=== PATIENT | female | born 1965 | race Caucasian/White ===

== ENCOUNTER 2023-03-02 13:35 | Emergency (ER) | payer MEDICARE ==
--- NOTE | 2023-03-02 13:49 | ED Physician Documentation ---
PD HPI CHEST PAIN - Stated complaint Stated Complaint: AFIB - Chief complaint Chief Complaint: Cardiac - History obtained from History obtained from: Patient - History of Present Illness Timing - onset: Unknown (Patient was seen in the office primary care as a new patient appointment. Found incidentally to be in a moderately rapid atrial fibrillation of unknown duration. She cannot feel it beating fast or irregular. Has noticed some exertional dyspnea for a month or so. No chest pains. No h/o afib.) Timing - details: Other (unknown onset) Quality: No: Pressure, Tightness, Aching Associated symptoms: Shortness of air (with activity for a month or more.). No: Diaphoresis, Nausea, Feeling faint / dizzy Similar symptoms before: Has not had sx before Recently seen: Clinic (today) Review of Systems Cardiac: denies: Chest pain / pressure, Palpitations Respiratory: denies: Dyspnea, Cough GI: denies: Vomiting, Bloody / black stool PD PAST MEDICAL HISTORY - Past Medical History Cardiovascular: None Respiratory: None Neuro: Other (meningioma with prior surgery but not complete resection. ) Endocrine/Autoimmune: None Musculoskeletal: Fibromyalgia, Chronic back pain - Present Medications Home Medications: Ambulatory Orders Medication Instructions Recorded Confirmed Apixaban [Eliquis] 1 tab PO BID #60 tablet 03/02/23 Duloxetine HCl [Cymbalta] 60 mg PO DAILY 03/02/23 03/02/23 Galcanezumab-Gnlm [Emgality 120 mg SQ ONCE 03/02/23 03/02/23 Syringe] Metoprolol Succinate [Toprol Xl] 50 mg PO DAILY #30 tablet 03/02/23 Nortriptyline [Pamelor] 25 mg PO DAILY 03/02/23 03/02/23 Pregabalin [Lyrica] 600 mg PO DAILY 03/02/23 03/02/23 Ubrogepant [Ubrelvy] 100 mg PO 1-2XD PRN 03/02/23 03/02/23 tiZANidine [Zanaflex] 4 mg PO Q8H PRN 03/02/23 03/02/23 - Allergies Allergies/Adverse Reactions: Allergies Allergy/AdvReac Type Severity Reaction Status Date / Time No Known Drug Allergies Allergy Verified 03/02/23 13:38 - Living Situation Living Arrangement: reports: At home - Social History Does the pt smoke?: No Does the pt drink ETOH?: No Does the pt have substance abuse?: No PD ED PE NORMAL - Vitals Vital signs reviewed: Yes - General General: Alert and oriented X 3, No acute distress, Well developed/nourished - Neck Neck: Supple, no meningeal sign, No adenopathy - Cardiac Cardiac: No murmur. No: RRR (irregular and rate about 120) - Respiratory Respiratory: Clear bilaterally - Abdomen Abdomen: Soft, Non tender - Derm Derm: Normal color, Warm and dry - Extremities Extremities: Normal ROM s pain, No edema, No calf tenderness / cord - Neuro Neuro: Alert and oriented X 3, No motor deficit, Normal speech Results - Vitals Vitals: Vital Signs - 24 hr 03/02/23 03/02/23 03/02/23 13:39 15:00 16:05 Temperature 36.6 C Heart Rate 94 95 112 H Respiratory 16 21 26 H Rate Blood Pressure 150/90 H 147/108 H 157/100 H O2 Saturation 97 96 96 Oxygen O2 Source Room air - EKG (time done) 13:53 EKG releavant findings:: EKG personally interpreted by author of this note. Relevant findings are: Rate: Rate (enter#) (127) Rhythm: Atrial fibrillation [place]: Normal QRS: Normal Ischemia: Normal ST segments. No: ST elevation c/w ischemia, ST depression - Labs Labs: Laboratory Tests 03/02/23 03/02/23 03/02/23 14:20 14:20 14:20 WBC 5.1 RBC 3.65 L Hgb 9.9 L Hct 31.1 L MCV 85.2 MCH 27.1 MCHC 31.8 L RDW 15.3 H Plt Count 285 MPV 9.8 Neut # (Auto) 3.3 Lymph # (Auto) 1.1 L [place] # (Auto) 0.6 Eos # (Auto) 0.1 Baso # (Auto) 0.1 Absolute Nucleated RBC 0.00 Nucleated RBC % 0.0 Sodium 141 Potassium 4.2 Chloride 107 Carbon Dioxide 29 Anion Gap 5.0 L BUN 7 Creatinine 0.4 L Estimated GFR (MDRD) 165 Glucose 92 Calcium 9.5 Magnesium 1.7 Total Bilirubin 0.4 AST 12 ALT 9 L Alkaline Phosphatase 113 B-Natriuretic Peptide Cancelled Total Protein 6.8 Albumin 4.1 Globulin 2.7 Albumin/Globulin Ratio 1.5 Lipase 5 L TSH 0.61 03/02/23 14:20 WBC RBC Hgb Hct MCV MCH MCHC RDW Plt Count MPV Neut # (Auto) Lymph # (Auto) [place] # (Auto) Eos # (Auto) Baso # (Auto) Absolute Nucleated RBC Nucleated RBC % Sodium Potassium Chloride Carbon Dioxide Anion Gap BUN Creatinine Estimated GFR (MDRD) Glucose Calcium Magnesium Total Bilirubin AST ALT Alkaline Phosphatase B-Natriuretic Peptide 353 H Total Protein Albumin Globulin Albumin/Globulin Ratio Lipase TSH - Rads (name of study) chest xray Relevant Findings:: Prelim report reviewed (no cardiopulmonary abnormality), EMP independent interpretation of test PD Medical Decision Making - ED course Complexity details: reviewed results, considered differential (newly discovered atrial fib of unknown duration. Can check labs. Meds to slow heart rate for rate control. Start ASA and/or DOAC. Her PCP asked to start DOAC and beta jaylin. ), d/w patient ED course: discovered atrial fib on new pt apppt in office. Rate somewhat fast at 120-130. Pt without symptoms. Can get lytes/TSH, CBC, BNP to evaluate. denies chest pain norlightheaded. Some GARCIA for month or more. Chest xray and BNP to eval for failure. Otherwise goalof rate control and anticoag. Her PMD said to me that outpt ECHO and stress testing can be done through her. Departure - Departure Disposition: 01 Home, Self Care Clinical Impression: Atrial fibrillation Condition: Good Instructions: Atrial Fibrillation Dc Prescriptions: Apixaban [Eliquis] 1 tab PO BID #60 tablet Metoprolol Succinate [Toprol Xl] 50 mg PO DAILY #30 tablet Comments: I sent your prescriptions electronically to the [facility] in [place]. Dr. Ivory said she was going to order an echocardiogram which is appropriate. She may also want to refer you to cardiology at some point. Return for new or worsening symptoms, especially chest pain or trouble breathing. Forms: PCP List Discharge Date/Time: 03/02/23 16:05
[2023-03-02] MEDS ORDERED: METOPROLOL 5 MG/5 ML VIAL IVP STA (14:19)
[2023-03-02] MEDS ORDERED: APIXABAN 5 MG TABLET PO STA (14:19)
[2023-03-02 14:26] LABS: BASOPHILS # (AUTO) 0.1 10^3/uL (0.0-0.1); EOSINOPHILS # (AUTO) 0.1 10^3/uL (0.0-0.7); EOSINOPHILS % (AUTO) 2.1 %; HCT - HEMATOCRIT 31.1 % (37.0-47.0); HGB - HEMOGLOBIN 9.9 g/dL (12.0-16.0); LYMPHOCYTES # (AUTO) 1.1 10^3/uL (1.5-3.5); LYMPHOCYTES % (AUTO) 20.9 %; MEAN CORPUSCULAR HEMOGLOBIN 27.1 pg (27.0-31.0); MEAN CORPUSCULAR HGB CONC 31.8 g/dL (32.0-36.0); MEAN CORPUSCULAR VOLUME 85.2 fL (81.0-99.0); MEAN PLATELET VOLUME 9.8 fL (7.9-10.8); MONOCYTES # (AUTO) 0.6 10^3/uL (0.0-1.0); MONOCYTES % (AUTO) 10.9 %; NEUTROPHILS # (AUTO) 3.3 10^3/uL (1.5-6.6); NEUTROPHILS % (AUTO) 64.9 %; PLT - PLATELET COUNT 285 10^3/uL (130-450); RED BLOOD COUNT 3.65 10^6/uL (4.20-5.40); RED CELL DISTRIBUTION WIDTH 15.3 % (12.0-15.0); WHITE BLOOD COUNT 5.1 x10^3/uL (4.8-10.8)
--- NOTE | 2023-03-02 14:26 | XRAY Report ---
PROCEDURE: Chest 1 View X-Ray INDICATIONS: Chest pain TECHNIQUE: One view of the chest was acquired. COMPARISON: None. FINDINGS: Surgical changes and devices: Thoracic spinal stimulator leads. Right IJ central venous catheter tip projects over the mid SVC. Lungs and pleura: No pleural effusions or pneumothorax. Lungs are clear. Mediastinum: Mediastinal contours appear normal. Heart size is normal. Bones and chest wall: No suspicious bony lesions. Overlying soft tissues appear unremarkable. IMPRESSION: No acute cardiopulmonary process. Reviewed by: Wayne Woodward on 03/02/2023 2:25 PM PDT Approved by: Wayne Woodward on 03/02/2023 2:25 PM PDT Station ID: [id number]
[2023-03-02 15:00] LABS: ALBUMIN 4.1 g/dL (3.2-5.5); ALBUMIN/GLOBULIN RATIO 1.5 (1.0-2.2); BILIRUBIN,TOTAL 0.4 mg/dL (0.2-1.0); CALCIUM 9.5 mg/dL (8.5-10.3); CREATININE 0.4 mg/dL (0.6-1.3); MAGNESIUM 1.7 mg/dL (1.7-2.3); POTASSIUM 4.2 mmol/L (3.5-4.5); TOTAL PROTEIN 6.8 g/dL (6.4-8.9)
[2023-03-02 15:03] VITALS: O2SAT 96
--- NOTE | 2023-03-02 15:45 | ED Physician Documentation ---
ED Addendum - Addendum Addendum: 03/02/23 15:[address] Basilio at 3 PM shift change. Briefly this is a 57-year-old woman who is sent from the clinic after she was found to be in A-fib on a routine first patient appointment. It is unclear how long she has been in A- fib. She really does not have any symptoms to suggest CHF or ischemic heart disease. At the time of signout the request was to follow-up on labs and reevaluate the patient who had received IV Lopressor and an oral dose of Eliquis here. She is feeling fine. Her heart rates about 105. We discussed the pros and cons of anticoagulation and she would like to go ahead with it. She does have a [id number] score of 1 for female gender. Lab work is notable for normocytic anemia. She states anemia is chronic for her. CMP and TSH are normal. I sent her prescriptions electronically to [facility] in [place]. Prescriptions: 1. Metoprolol XL 50 mg p.o. daily #30 2. 5 mg p.o. twice daily #60 Disposition: Discharged home Condition: Stable Diagnosis: 1. Atrial fibrillation
[2023-03-02 16:14] VITALS: BP 157/100
== END 2023-03-02 16:05 | disposition home or self-care (01) ==
LOC: ED 13:35
DX: I48.91 Unspecified atrial fibrillation (principal)
CPT/HCPCS: 36415; 71045; 80053; 83690; 83735; 83880; 84443; 85025; 93005; 96374; 99284; A9270; 84484

== ENCOUNTER 2023-03-10 11:51 | Outpatient (CLI) | payer MEDICARE ==
[2023-03-10 12:39] LABS: FERRITIN 5.2 ng/mL (11.0-306.8)
== END 2023-03-10 11:52 | disposition home or self-care (01) ==
LOC: LAB 11:51
PROVIDERS: ATTEND Internal Medicine
DX: D64.9 Anemia, unspecified (principal)
CPT/HCPCS: 36415; 82728; 83540; 84466

== ENCOUNTER 2023-03-17 19:19 | Emergency (ER) | payer MEDICARE ==
--- NOTE | 2023-03-17 19:52 | ED Physician Documentation ---
History of Present Illness - Stated complaint Stated Complaint: SOA/FRAZIER/GI/HIGH BP - Chief complaint Chief Complaint: General - History obtained from History obtained from: Patient, Family - History of Present Illness Pain level max: 0 Pain level now: 0 - Additonal information Additional information: 57-year-old female presents to the emergency department stating that she was recently diagnosed with atrial fibrillation started on Eliquis about 2 weeks ago. Also started on metoprolol. She was recently started on iron as well for chronic anemia. She states she has had dark stools for the past 3 to 4 days. She states over the past few days she has noticed that she has become more short of breath and feels like her ability to walk is less. Has not noted any significant swelling in her legs. No chest pain. No fevers. No chills. Better with rest, worse with walking. Review of Systems Constitutional: denies: Fever, Chills Respiratory: denies: Cough GI: denies: Nausea, Vomiting, Diarrhea Skin: denies: Rash Musculoskeletal: denies: Neck pain, Back pain Neurologic: denies: Headache PD PAST MEDICAL HISTORY - Past Medical History Cardiovascular: None Respiratory: None Neuro: Other (meningioma with prior surgery but not complete resection. ) Endocrine/Autoimmune: None Musculoskeletal: Fibromyalgia, Chronic back pain - Past Surgical History Past Surgical History: Yes Ortho: Spine surgery - Present Medications Home Medications: Ambulatory Orders Medication Instructions Recorded Confirmed Apixaban [Eliquis] 1 tab PO BID #60 tablet 03/02/23 Duloxetine HCl [Cymbalta] 60 mg PO DAILY 03/02/23 03/02/23 Galcanezumab-Gnlm [Emgality 120 mg SQ ONCE 03/02/23 03/02/23 Syringe] Metoprolol Succinate [Toprol Xl] 50 mg PO DAILY #30 tablet 03/02/23 Nortriptyline [Pamelor] 25 mg PO DAILY 03/02/23 03/02/23 Pregabalin [Lyrica] 600 mg PO DAILY 03/02/23 03/02/23 Ubrogepant [Ubrelvy] 100 mg PO 1-2XD PRN 03/02/23 03/02/23 tiZANidine [Zanaflex] 4 mg PO Q8H PRN 03/02/23 03/02/23 Furosemide [Lasix] 20 mg PO DAILY #7 tablet 03/17/23 - Allergies Allergies/Adverse Reactions: Allergies Allergy/AdvReac Type Severity Reaction Status Date / Time No Known Drug Allergies Allergy Verified 03/17/23 19:28 - Social History Does the pt smoke?: No Smoking Status: Never smoker Does the pt drink ETOH?: No Does the pt have substance abuse?: No PD ED PE NORMAL - Vitals Vital signs reviewed: Yes - General General: Alert and oriented X 3, No acute distress - HEENT HEENT: PERRL, Moist mucous membranes - Neck Neck: Supple, no meningeal sign - Cardiac Cardiac: Other (Irregularly irregular) - Respiratory Respiratory: No respiratory distress, Clear bilaterally - Abdomen Abdomen: Soft, Non tender, Non distended - Derm Derm: Warm and dry - Extremities Extremities: No edema, No calf tenderness / cord - Neuro Neuro: Alert and oriented X 3 - Psych Psych: Normal mood, Normal affect Results - Vitals Vitals: Vital Signs - 24 hr 03/17/23 03/17/23 03/17/23 19:24 19:55 20:40 Temperature 36.8 C Heart Rate 124 H 101 H 92 Respiratory 18 23 27 H Rate Blood Pressure 150/90 H 138/97 H 135/91 H O2 Saturation 96 97 94 Oxygen O2 Source Room air - EKG (time done) 1933 EKG releavant findings:: EKG personally interpreted by author of this note. Relevant findings are: Rate: Rate (enter#) (116) Rhythm: Atrial fibrillation (RVR) [place]: Normal QRS: Normal Ischemia: Non specific changes - Labs Labs: Laboratory Tests 03/17/23 03/17/23 03/17/23 19:47 19:47 19:47 WBC 5.6 RBC 3.62 L Hgb 9.5 L Hct 30.9 L MCV 85.4 MCH 26.2 L MCHC 30.7 L RDW 15.6 H Plt Count 294 MPV 10.6 Neut # (Auto) 3.4 Lymph # (Auto) 1.4 L [place] # (Auto) 0.6 Eos # (Auto) 0.1 Baso # (Auto) 0.1 Absolute Nucleated RBC 0.00 Nucleated RBC % 0.0 Sodium 137 Potassium 3.9 Chloride 106 Carbon Dioxide 25 Anion Gap 6.0 BUN 15 Creatinine 0.6 Estimated GFR (MDRD) 103 Glucose 88 Calcium 9.1 Total Bilirubin 0.2 AST 28 ALT 17 Alkaline Phosphatase 107 B-Natriuretic Peptide 571 H Total Protein 6.6 Albumin 4.1 Globulin 2.5 Albumin/Globulin Ratio 1.6 Lipase 12 Urine Color Urine Clarity Urine pH Ur Specific [place] Urine Protein Urine Glucose (UA) Urine Ketones Urine Occult Blood Urine Nitrite Urine Bilirubin Urine Urobilinogen Ur Leukocyte Esterase Ur Microscopic Review Urine Culture Comments 03/17/23 20:49 WBC RBC Hgb Hct MCV MCH MCHC RDW Plt Count MPV Neut # (Auto) Lymph # (Auto) [place] # (Auto) Eos # (Auto) Baso # (Auto) Absolute Nucleated RBC Nucleated RBC % Sodium Potassium Chloride Carbon Dioxide Anion Gap BUN Creatinine Estimated GFR (MDRD) Glucose Calcium Total Bilirubin AST ALT Alkaline Phosphatase B-Natriuretic Peptide Total Protein Albumin Globulin Albumin/Globulin Ratio Lipase Urine Color YELLOW Urine Clarity CLEAR Urine pH 6.0 Ur Specific [place] 1.010 Urine Protein NEGATIVE Urine Glucose (UA) NEGATIVE Urine Ketones NEGATIVE Urine Occult Blood NEGATIVE Urine Nitrite NEGATIVE Urine Bilirubin NEGATIVE Urine Urobilinogen 0.2 (NORMAL) Ur Leukocyte Esterase NEGATIVE Ur Microscopic Review NOT INDICATED Urine Culture Comments NOT INDICATED - Rads (name of study) cxr Relevant Findings:: Final report received, See rad report PD Medical Decision Making - ED course Complexity details: reviewed results, re-evaluated patient, considered differential, d/w patient ED course: 57-year-old female presents to the emergency department with shortness of breath after being recently diagnosed with atrial fibrillation. Her BNP is double what it was 2 weeks ago. Has mild pulmonary edema. No hypoxia. No respiratory distress. She has rate controlled in the emergency department. We will start her on Lasix. Her hemoglobin is stable from prior. 9.5 versus 9.9, 2 weeks ago. Ambulating without difficulty here. No need for supplemental oxygen. She has an echocardiogram scheduled for mid March. She will follow-up with her PCP this week. Patient counseled regarding signs and symptoms for which I believe and urgent re-evaluation would be necessary. Patient with good understanding of and agreement to plan and is comfortable going home at this time This document was made in part using voice recognition software. While efforts are made to proofread this document, sound alike and grammatical errors may occur. No chest pain. Departure - Departure Disposition: 01 Home, Self Care Clinical Impression: Pulmonary edema Qualifiers: Chronicity: acute Qualified Code(s): J81.0 - Acute pulmonary edema Condition: Good Instructions: ED CHF General Follow-Up: your,doctor in 3-5 days [Other] Prescriptions: Furosemide [Lasix] 20 mg PO DAILY #7 tablet Comments: Your markers of heart failure are elevated today and you appear to have a small amount of fluid in your lungs, this is likely causing your shortness of breath. We have started you on a diuretic. We will start with a 1 week trial. Please follow-up with your doctor this week for further care, it is recommended that you have an echocardiogram, it appears that you have one scheduled for mid March. Your prescriptions were sent to [facility] in [place]. Forms: PCP List
[2023-03-17 19:53] LABS: BASOPHILS # (AUTO) 0.1 10^3/uL (0.0-0.1); BASOPHILS % (AUTO) 1.1 %; EOSINOPHILS # (AUTO) 0.1 10^3/uL (0.0-0.7); EOSINOPHILS % (AUTO) 2.1 %; HCT - HEMATOCRIT 30.9 % (37.0-47.0); HGB - HEMOGLOBIN 9.5 g/dL (12.0-16.0); LYMPHOCYTES # (AUTO) 1.4 10^3/uL (1.5-3.5); LYMPHOCYTES % (AUTO) 25.5 %; MEAN CORPUSCULAR HEMOGLOBIN 26.2 pg (27.0-31.0); MEAN CORPUSCULAR HGB CONC 30.7 g/dL (32.0-36.0); MEAN CORPUSCULAR VOLUME 85.4 fL (81.0-99.0); MEAN PLATELET VOLUME 10.6 fL (7.9-10.8); MONOCYTES # (AUTO) 0.6 10^3/uL (0.0-1.0); MONOCYTES % (AUTO) 10.3 %; NEUTROPHILS # (AUTO) 3.4 10^3/uL (1.5-6.6); NEUTROPHILS % (AUTO) 60.6 %; PLT - PLATELET COUNT 294 10^3/uL (130-450); RED BLOOD COUNT 3.62 10^6/uL (4.20-5.40); RED CELL DISTRIBUTION WIDTH 15.6 % (12.0-15.0); WHITE BLOOD COUNT 5.6 x10^3/uL (4.8-10.8)
[2023-03-17 20:16] LABS: ALBUMIN 4.1 g/dL (3.2-5.5); ALBUMIN/GLOBULIN RATIO 1.6 (1.0-2.2); BILIRUBIN,TOTAL 0.2 mg/dL (0.2-1.0); CALCIUM 9.1 mg/dL (8.5-10.3); CREATININE 0.6 mg/dL (0.6-1.3); POTASSIUM 3.9 mmol/L (3.5-4.5); TOTAL PROTEIN 6.6 g/dL (6.4-8.9)
--- NOTE | 2023-03-17 20:53 | XRAY Report ---
PROCEDURE: Chest 1 View X-Ray INDICATIONS: dyspnea TECHNIQUE: One view of the chest was acquired. COMPARISON: Similar chest plain film earlier this month, 03/02/2023. FINDINGS: Surgical changes and devices: Stable over time. Lungs and pleura: No pleural effusions or pneumothorax. Lungs are mildly edematous. Mediastinum: Mediastinal contours appear normal. Heart size is mildly enlarged. Bones and chest wall: No suspicious bony lesions. Overlying soft tissues appear unremarkable. IMPRESSION: Mild pulmonary edema with mild cardiomegaly, slight acute exacerbation of chronic CHF. Reviewed by: Gustavo Giraldo MD on 03/17/2023 8:51 PM PDT Approved by: Gustavo Giraldo MD on 03/17/2023 8:51 PM PDT Station ID: [id number]
[2023-03-17] MEDS ORDERED: FUROSEMIDE 20 MG/2 ML VIAL IVP STA (20:57)
[2023-03-17 21:03] LABS: BILIRUBIN,URINE NEGATIVE (NEGATIVE); GLUCOSE, URINE (UA) NEGATIVE (NEGATIVE); KETONES,URINE (UA) NEGATIVE (NEGATIVE); LEUKOCYTE ESTERASE, URINE NEGATIVE (NEGATIVE); NITRITE,URINE NEGATIVE (NEGATIVE); OCCULT BLOOD,URINE NEGATIVE (NEGATIVE); PROTEIN,URINE NEGATIVE (NEGATIVE); UROBILINOGEN,URINE 0.2 (NORMAL) E.U./dL (NORMAL)
[2023-03-17 21:06] LABS: CLARITY,URINE CLEAR (CLEAR)
[2023-03-17 21:40] VITALS: BP 150/93; O2SAT 95
== END 2023-03-17 21:33 | disposition home or self-care (01) ==
LOC: ED 19:19
DX: J81.0 Acute pulmonary edema (principal); I48.91 Unspecified atrial fibrillation
CPT/HCPCS: 36415; 80053; 81001; 81003; 83690; 83880; 85025; 87086; 93005; 96374; 99284

== ENCOUNTER 2023-04-10 09:42 | Outpatient (CLI) | payer MEDICARE ==
[2023-04-10 14:44] LABS: BASOPHILS # (AUTO) 0.1 10^3/uL (0.0-0.1); BASOPHILS % (AUTO) 1.4 %; EOSINOPHILS # (AUTO) 0.1 10^3/uL (0.0-0.7); EOSINOPHILS % (AUTO) 1.9 %; HCT - HEMATOCRIT 38.2 % (37.0-47.0); HGB - HEMOGLOBIN 12.5 g/dL (12.0-16.0); LYMPHOCYTES % (AUTO) 28.5 %; MEAN CORPUSCULAR HEMOGLOBIN 29.4 pg (27.0-31.0); MEAN CORPUSCULAR HGB CONC 32.7 g/dL (32.0-36.0); MEAN CORPUSCULAR VOLUME 89.9 fL (81.0-99.0); MEAN PLATELET VOLUME 11.5 fL (7.9-10.8); MONOCYTES # (AUTO) 0.4 10^3/uL (0.0-1.0); MONOCYTES % (AUTO) 11.1 %; NEUTROPHILS # (AUTO) 2.1 10^3/uL (1.5-6.6); NEUTROPHILS % (AUTO) 56.8 %; PLT - PLATELET COUNT 296 10^3/uL (130-450); RED BLOOD COUNT 4.25 10^6/uL (4.20-5.40); RED CELL DISTRIBUTION WIDTH 18.1 % (12.0-15.0); WHITE BLOOD COUNT 3.6 x10^3/uL (4.8-10.8)
[2023-04-10 16:07] LABS: ALBUMIN 4.3 g/dL (3.2-5.5); BILIRUBIN,TOTAL 0.3 mg/dL (0.2-1.0); CALCIUM 9.2 mg/dL (8.5-10.3); CREATININE 0.5 mg/dL (0.6-1.3); POTASSIUM 4.6 mmol/L (3.5-4.5); TOTAL PROTEIN 6.5 g/dL (6.4-8.9)
[2023-04-10 16:23] LABS: FERRITIN 293.2 ng/mL (11.0-306.8)
== END 2023-04-10 09:43 | disposition home or self-care (01) ==
LOC: LAB.S 09:42
PROVIDERS: ATTEND Internal Medicine
DX: D64.9 Anemia, unspecified (principal)
CPT/HCPCS: 36415; 80053; 82728; 83540; 84466; 85025

== ENCOUNTER 2023-05-08 10:11 | Outpatient (CLI) | payer MEDICARE ==
[2023-05-08 15:31] LABS: ALBUMIN 4.5 g/dL (3.2-5.5); ALBUMIN/GLOBULIN RATIO 1.8 (1.0-2.2); BILIRUBIN,TOTAL 0.4 mg/dL (0.2-1.0); CALCIUM 9.8 mg/dL (8.5-10.3); CREATININE 0.5 mg/dL (0.6-1.3); POTASSIUM 4.6 mmol/L (3.5-4.5)
[2023-05-08 15:53] LABS: FERRITIN 194.2 ng/mL (11.0-306.8)
== END 2023-05-08 10:12 | disposition home or self-care (01) ==
LOC: LAB.S 10:11
PROVIDERS: ATTEND Internal Medicine
DX: D64.9 Anemia, unspecified (principal); R63.5 Abnormal weight gain; K91.2 Postsurgical malabsorption, not elsewhere classified
CPT/HCPCS: 36415; 80053; 82306; 82607; 82652; 82728; 82746; 83540; 84466; 85025

== ENCOUNTER 2023-05-09 13:36 | Outpatient (CLI) | payer MEDICARE ==
[2023-05-09 19:52] LABS: BASOPHILS % (AUTO) 0.7 %; EOSINOPHILS # (AUTO) 0.1 10^3/uL (0.0-0.7); EOSINOPHILS % (AUTO) 1.2 %; HCT - HEMATOCRIT 38.6 % (37.0-47.0); HGB - HEMOGLOBIN 12.4 g/dL (12.0-16.0); LYMPHOCYTES # (AUTO) 1.3 10^3/uL (1.5-3.5); LYMPHOCYTES % (AUTO) 31.8 %; MEAN CORPUSCULAR HEMOGLOBIN 27.9 pg (27.0-31.0); MEAN CORPUSCULAR HGB CONC 32.1 g/dL (32.0-36.0); MEAN CORPUSCULAR VOLUME 86.9 fL (81.0-99.0); MONOCYTES # (AUTO) 0.4 10^3/uL (0.0-1.0); NEUTROPHILS # (AUTO) 2.3 10^3/uL (1.5-6.6); NEUTROPHILS % (AUTO) 56.3 %; PLT - PLATELET COUNT 285 10^3/uL (130-450); RED BLOOD COUNT 4.44 10^6/uL (4.20-5.40); RED CELL DISTRIBUTION WIDTH 16.7 % (12.0-15.0); WHITE BLOOD COUNT 4.1 x10^3/uL (4.8-10.8)
== END 2023-05-09 13:37 | disposition home or self-care (01) ==
LOC: LAB.S 13:36
PROVIDERS: ATTEND Internal Medicine
DX: D64.9 Anemia, unspecified (principal)
CPT/HCPCS: 36415; 85025